=== PATIENT | female | born 1970 | race Two or more races ===

== ENCOUNTER 2021-10-10 09:11 | Emergency (ER) | payer BC ==
[2021-10-10] MEDS ORDERED: BEBTELOVIMAB (EUA) 175 MG/2 ML VIAL IVPUSH ONE (09:53)
[2021-10-10 09:54] VITALS: BMI 69.9
[2021-10-10 12:42] VITALS: BP 165/85; PULSE 81; TEMP 98.6
== END 2021-10-10 12:10 | disposition home or self-care (01) ==
LOC: JER 09:11 → JCOVINFU 09:11
PROC: 3E033GC Introduction of Other Therapeutic Substance into Peripheral Vein, Percutaneous Approach (ICD-10-PCS; principal; 2021-10-10)
DX: U07.1 COVID-19 (principal)
CPT/HCPCS: 99284-25; M0222; Q0222